=== PATIENT | female | born 2005 | race Caucasian/White ===

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

== ENCOUNTER 2024-02-16 15:30 | Emergency (ER) | payer OTHER, SELFPAY ==
[2024-02-16 15:33] VITALS: BP 130/80; PULSE 73; RESP 16; TEMP 36.4; O2SAT 100
--- NOTE | 2024-02-16 16:00 | ED.GENADULT ---
HPI - General Adult General Chief complaint: Unspecified Stated complaint: abd, back and leg pain Time Seen by Provider: 02/16/24 15:47 History of Present Illness HPI narrative: Pt presents with two different complaints. Pt has had low abdominal pain intermittently for quite awhile after eating. Pt says she has low abdominal pain after eating and then has diarrhea and the pain goes away. Pt has had low back pain for last several days radiating to top of right thigh for three days. Pt says the back pain causes her abdominal pain to start. 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 Pt denies numbness or wekaness pr probs with bladder or bowels. Related Data Home Medications Medication Instructions Recorded Confirmed norethindrone 1.5 mg-ethinyl tablet 07/10/21 07/10/21 estradiol 30 mcg(21)/iron 75 mg(7) tablet (Junel FE 1.5/30 (28)) Allergies Allergy/AdvReac Type Severity Reaction Status Date / Time No Known Allergies Allergy Verified 02/16/24 16:14 Course Vital Signs Vital signs: Vital Signs Temperature 97.6 F 02/16/24 15:33 Pulse Rate 73 02/16/24 15:33 Respiratory Rate 16 02/16/24 15:33 Blood Pressure 130/80 02/16/24 15:33 Pulse Oximetry 100 02/16/24 15:33 Temperature 97.6 F 02/16/24 15:33 Pulse Rate 74 02/16/24 17:06 Respiratory Rate 15 02/16/24 17:06 Blood Pressure 112/57 L 02/16/24 17:06 Pulse Oximetry 100 02/16/24 17:06 Medical Decision Making [facility] Narrative Medical decision making narrative: Pt presents with intermittent abdominal pain which seems more like IBS. will check some labs. Pt also has back pain and top of right leg pain whicn seems like pinched nerve or nerve root or disc bulging issue. will treat for pain. Pt has UTi so will add macrobid to flexeril and prednisone wean. Vital Signs Vital Signs: Vital Signs Temperature 97.6 F 02/16/24 15:33 Pulse Rate 73 02/16/24 15:33 Respiratory Rate 16 02/16/24 15:33 Blood Pressure 130/80 02/16/24 15:33 Pulse Oximetry 100 02/16/24 15:33 Temperature 97.6 F 02/16/24 15:33 Pulse Rate 74 02/16/24 17:06 Respiratory Rate 15 02/16/24 17:06 Blood Pressure 112/57 L 02/16/24 17:06 Pulse Oximetry 100 02/16/24 17:06 Lab Data 02/16/24 16:26 02/16/24 16:26 Labs: Lab Results 02/16/24 02/16/24 Range/Units 16:26 16:46 WBC 10.9 H (4.5-10.0) K/mm3 RBC 4.95 (4.2-5.4) M/mm3 Hgb 14.3 (12.0-15.0) g/dL Hct 41.9 (37.0-47.0) % MCV 84.6 (80-100) fl MCH 28.9 (26-34) pg MCHC 34.1 (32-36) g/dl RDW 13.0 (11.5-14.5) % Plt Count 285 (150-375) k/mm3 MPV 10.1 (7.4-10.4) fl Immature Gran % (Auto) 0.7 H (0-0.5) % Neut % (Auto) 74.7 H (45.5-73.1) % Lymph % (Auto) 14.9 L (18.3-44.2) % [place] % (Auto) 7.1 (2.6-8.5) % Eos % (Auto) 2.2 (0-4.4) % Baso % (Auto) 0.4 (0.2-1.2) % Lymph # (Auto) 1.62 (0.9-3.2) K/mm3 [place] # (Auto) 0.8 H (0.1-0.6) K/mm3 Eos # (Auto) 0.2 (0-0.3) K/mm3 Baso # (Auto) 0.0 (0.0-0.1) K/mm3 Abs Immat Gran (auto) 0.08 H (0.00-0.031) K/mm3 Absolute Neuts (auto) 8.1 H (1.3-6.7) K/mm3 Absolute Nucleated RBC 0.000 (0.0-0.012) K/mm3 Nucleated RBC % 0.0 (0.0-0.2) % Sodium 139 (134-143) mmol/L Potassium 3.5 (3.4-5.0) mmol/L Chloride 102 (98-107) mmol/L Carbon Dioxide 28 (22-30) mmol/L Anion Gap 9 (4-12) mmol/L BUN 6 L (8-21) mg/dL Creatinine 0.70 (0.7-1.0) mg/dL Estim Creat Clear Calc 107 ml/min Estimated GFR > 60 (59 - ) Glucose 99 (65-110) mg/dL Calcium 9.3 (8.9-10.7) mg/dL Total Bilirubin 0.5 (0.2-1.3) mg/dL AST 18 (14-36) U/L ALT 13 (6-35) U/L Alkaline Phosphatase 73 (45-116) U/L Total Protein 8.0 (6.3-8.6) g/dL Albumin 4.7 (3.7-5.6) g/dL Serum HCG, Qual Negative Urine Color Yellow (Yellow) Urine Appearance Cloudy H (Clear) Urine p
[2024-02-16 16:18] VITALS: BP 133/75; PULSE 65; RESP 15; O2SAT 100
[2024-02-16 16:33] LABS: Basophils Percent Auto 0.4 % (0.2-1.2); Eosinophils Absolute Auto 0.2 K/mm3 (0-0.3); Eosinophils Percent Auto 2.2 % (0-4.4); Hematocrit 41.9 % (37.0-47.0); Hemoglobin 14.3 g/dL (12.0-15.0); Immature Granulocyte Absolute 0.08 K/mm3 (0.00-0.031); Immature Granulocyte Percent A 0.7 % (0-0.5); Lymphocytes Absolute Auto 1.62 K/mm3 (0.9-3.2); Lymphocytes Percent Auto 14.9 % (18.3-44.2); Mean Corpuscular HGB Conc 34.1 g/dl (32-36); Mean Corpuscular Hemoglobin 28.9 pg (26-34); Mean Corpuscular Volume 84.6 fl (80-100); Mean Platelet Volume 10.1 fl (7.4-10.4); Monocytes Absolute Auto 0.8 K/mm3 (0.1-0.6); Monocytes Percent Auto 7.1 % (2.6-8.5); Neutrophils Absolute Auto 8.1 K/mm3 (1.3-6.7); Neutrophils Percent Auto 74.7 % (45.5-73.1); Platelet Count Result 285 k/mm3 (150-375); Red Blood Count 4.95 M/mm3 (4.2-5.4); White Blood Count 10.9 K/mm3 (4.5-10.0)
[2024-02-16 16:48] LABS: Alanine Aminotransferase 13 U/L (6-35); Albumin Level 4.7 g/dL (3.7-5.6); Alkaline Phosphatase 73 U/L (45-116); Anion Gap 9 mmol/L (4-12); Aspartate Amino Transferase 18 U/L (14-36); Bilirubin,Total 0.5 mg/dL (0.2-1.3); Blood Urea Nitrogen 6 mg/dL (8-21); Calcium 9.3 mg/dL (8.9-10.7); Carbon Dioxide 28 mmol/L (22-30); Chloride 102 mmol/L (98-107); Estimated CRCL calculation 107 ml/min; Estimated Glomerular Filt Rate > 60; Glucose 99 mg/dL (65-110); Potassium 3.5 mmol/L (3.4-5.0); Sodium 139 mmol/L (134-143)
[2024-02-16 16:58] LABS: Add Urine Microscopic? YES; Appearance Urine Cloudy (Clear); Bacteria Urine None Seen /hpf; Bilirubin Urine Negative (Negative); Blood Urine 2+ (Negative); Color Urine Yellow (Yellow); Glucose Urine UA Negative (Negative); Ketones Urine Negative (Negative); Leukocyte Esterase Ur 1+ LEU/UL (Negative); Nitrate Urine Negative (Negative); Non Pathogenic Casts 0-2; Protein Urine 1+ mg/dL (Negative); RBC Urine 51-100 /hpf (0-2); Specific Grav Ur 1.014 (1.001-1.035); Squamous Epithelial Cell Urine Few /hpf (Few); WBC Urine 21-50 /hpf (0-3); pH Urine 6.5 (5.0-9.0)
[2024-02-16] MEDS: CYCLOBENZAPRINE HCL 10 MG TABLET PO (17:02)
[2024-02-16] MEDS: methylPREDNISolone SOD SUCC 125 MG VIAL IV PUSH (17:03)
[2024-02-16 17:05] LABS: SPREG INTERNAL CONTROL Positive; Serum Qual hCG Negative
[2024-02-16 17:06] VITALS: BP 112/57; PULSE 74; RESP 15; O2SAT 100
[2024-02-16] MEDS: fentaNYL CITRATE INJ (*CRX) 100 MCG/2 ML VIAL 25 MCG IV PUSH (17:06)
[2024-02-16 18:37] VITALS: BP 115/57; PULSE 64; RESP 16; TEMP 36.5; O2SAT 100
== END 2024-02-16 18:40 | disposition home or self-care (01) ==
PROVIDERS: Emergency Provider Emergency Medicine; PCP Internal Medicine
DX: N39.0 Urinary tract infection, site not specified (principal); K58.9 Irritable bowel syndrome, unspecified; M54.50 Low back pain, unspecified; Z79.3 Long term (current) use of hormonal contraceptives
CPT/HCPCS: 36415; 80053; 81001; 84703; 85025; 87086; 96374; 96375; 99284; A9270; J2919; J3010

== ENCOUNTER 2024-09-26 11:24 | Outpatient (CLI) | payer OTHER, SELFPAY ==
--- NOTE | ~2024-09-26 | XR_ITS ---
Clinical Indication: Cough PA and lateral views of the chest: Comparison: None Findings: The lungs are clear, without evidence of focal consolidation or pleural effusion. Cardiome diastinal silhouette is within normal limits. Bones and soft tissues are unremarkable. Impression: Normal chest. Reviewed, dictated and finalized at location . Impression: Normal chest.
--- OUTSIDE RECORDS SUMMARY | 2024-09-26 11:58 | XMS_ITS | Continuity of Care Document ---
Author Organization [facility] Address [address] [place] [address] Care Team Providers Care Sales Agent Business Services Name Role Phone BUTCH NEAL Primary Care Provider Assessment Encounter Date Assessment Date Assessment LastModified by Organization Details LastModified Time 09/26/2024 09/26/2024 Patient is ___weeks . Discussed plan. [email or web address] Not available 09/26/2024 09:54:56 Plan of Treatment Reminders Order Date Submit Date Provider Last Modified By Organization Details Last Modified Time Details Appointments OB ROUTINE 2024 08:45A M Eder VALLES MD Not available Not available Not available U/S OB BASELIN E 2024 08:30A M ULTRASOUND Not available Not available Not available OB ROUTINE 2024 09:30A M CALEB RENAE MD Not available Not available Not available Lab None recorde d. Referral None recorde d. Procedures None recorde d. Surgeries None recorde d. Imaging None recorde d. Medication Orders Zithrom ax Z-Santosh 250 mg tablet 2024 025 KATERYNA [id number], [address], [place], [address], 09/26/2024 10:26:43 codeine 10 mg-guai fenesin 100 mg/5 mL oral liquid 2024 025 [email or web address] [id number], [address], [place], [address], 09/26/2024 10:38:23 Patient TargetsNo targets recorded. Patient InstructionsNo instructions recorded. Reason for Referral None Reported. Results Created Date Observation Date Name Description Value Unit Range Abnormal Flag Note LastModifiedBy Organization Detail LastModifiedTime 08/30/19 25 08/29/2024 US, obste tric, nucha l trans lucen cy No observ ation record ed. [email or web address] [place] [address], [place], [address], 08/29/2024 10:49:40 08/30/19 25 08/29/2024 US, obste tric, nucha l trans lucen cy No observ ation record ed. [email or web address] [place] [address], [place], [address], 08/30/2024 08:42:16 Result Notes None recorded. Problems Name Problem SNOMED Code Status Onset Date Resolution Date Notes Provider Name and Address Organization Details Recorded Time 46976285 Active 2024 Indiana [facility], [facility] 11:04:52 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 atrophy 535918394182 737437 Active 2024 baby low risk Razia Cullen [facility], [facility] 13:58:57 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 atrophy 115098895520 705450 Active 2024 baby low risk Razia Cullen [facility], [facility] 13:58:57 Upper respirator y infection 58180125 Active 2024 Orville Valles MD [address], [place], [address], [facility] 10:27:18 Problem Notes None recorded. Medical Equipment None Reported. Allergies No known drug allergies Medications Name Sig Start Date Stop Date Status Note LastModified by Organization Details LastModified Time cyclobenzap rine 10 mg tablet TAKE 1 TABLET BY MOUTH 3 TIMES A DAY 03/03 completed Not Available Not Available Not Available amoxicillin 500 mg capsule TAKE 1 CAPSULE BY MOUTH THREE TIMES A DAY FOR 10 DAYS 05/21 completed Not Available Not Available Not Available prednisone 10 mg tablet PLEASE SEE ATTACHED FOR DETAILED DIRECTION S 03/03 completed Not Available Not Available Not Available doxycycline hyclate 100 mg capsule TAKE 1 CAPSULE BY MOUTH TWICE A DAY FOR 7 DAYS 05/10 completed Not Available Not Available Not Available fluconazole 150 mg tablet TAKE 1 TABLET (150 MG) BY MOUTH EVERY DAY FOR 1 DOSE DIRECTED 09/26 completed Not Available Not Available Not Available ampicillin 500 mg capsule TAKE 1 CAPSULE BY MOUTH TWICE A DAY DIRECTED FOR 10 DAYS 09/26 completed Not Available Not Available Not Available Zithromax Z-Santosh 250 mg tablet TAKE 2 TABLETS (500 MG) BY ORAL ROUTE ONCE DAILY FOR 1 DAY THEN 1 TABLET (250 MG) BY ORAL ROUTE ONCE DAILY FOR 4 DAYS 2024 active Not Available Not Available Not Avai lable metronidazo le 500 mg tablet TAKE 1 TABLET BY MOUTH TWICE A DAY FOR 7 DAYS 05/10 completed Not Available Not Available Not Available nystatin-tr iamcinolone 100,000 unit/gram-0 .1 % topical ointment APPLY TO AFFECTED AREA TWICE A DAY FOR 7 DAYS 05/10 completed Not Available Not Available Not Available codeine 10 mg-guaifene sin 100 mg/5 mL oral liquid Take 10 mL every 4 hours by oral route. 2024 active Not Available Not Available Not Avai lable amoxicillin 875 mg-potassiu m clavulanate 125 mg tablet TAKE 1 TABLET BY MOUTH EVERY 12 HOURS 05/21 completed Not Available Not Available Not Available azithromyci n 1 gram oral packet TAKE 1 PACKET EVERY DAY BY ORAL ROUTE DIRECTED. 2024 active Not Available Not Available Not Avai lable azithromyci n 500 mg tablet TAKE 2 TABLETS BY MOUTH TODAY 08/29 completed Not Available Not Available Not Available nitrofurant oin monohydrate /macrocryst als 100 mg capsule TAKE 1 CAPSULE BY MOUTH EVERY 12 HOURS DIRECTED FOR 7 DAYS 08/29 completed Not Available Not Available Not Available Blisovi 24 Fe 1 mg-20 mcg (24)/75 mg (4) tablet TAKE 1 TABLET BY MOUTH EVERY DAY 08/29 completed Not Available Not Available Not Available Linzess 72 mcg capsule 05/10 completed Not Available Not Available Not Available Vitals Date Recorded Body height Body mass index (BMI) Body mass index (BMI) Percentile per age and sex Body weight Systolic blood pressure Diastolic blood pressure Provider Name and Address Organization Details Last Updated DateTime 5 157.48 cm 34.8 kg/m2 97 % 19444.5 5 g 125 mm[Hg] 76 mm[Hg] Indiana Martinez [facility] 09:56:38 Social History Question Answer Notes LastModified by Organizat ion Details LastModified Time Tobacco Smoking Status Never Smoker Joy vizcarra, [facility] 05/21/2022 16:49:48 Are You Blind Or Do You Have Difficulty Seeing? No Information n ot available 05/21/2022 What Is Your Level Of Caffeine Consumption? Moderate Information not available 05/21/2022 How Much Tobacco Do You Chew? None Information not available 05/21/2022 In The 14 Days Before Symptom Onset, Have You Had Close Contact With A Laboratory-confirm ed COVID-19 While That Case Was Ill? No Information n ot available 05/21/2022 In The 14 Days Before Symptom Onset, Have You Had Close Contact With A Person Who Is Under Investigation For COVID-19 While That Person Was Ill? No Information not available 05/21/2022 Have You Been To An Area Known To Be High Risk For COVID-19? No Information not available 05/21/2022 Are You Deaf Or Do You Have Serious Difficulty Hearing? No Information not available 05/21/2022 What Type Of Diet Are You Following? REGULAR Information n ot available 05/21/2022 What Is The Highest Grade Or Level Of School You Have Completed Or The Highest Degree You Have Received? [id number] Information not available 05/27/2023 Are There Any Guns Present In Your Home? No Information not available 05/21/2022 Do You Use Protection During Sex? Usually Information not available 05/21/2022 Do You Use Your Seat Belt Or Car Seat Routinely? Yes Information not available 05/21/2022 Do You Have Smoke And Carbon Monoxide Detectors In Your Home? Yes Information not available 05/21/2022 How Much Tobacco Do You Smoke? No Information not available 05/21/2022 Do You Use Sunscreen Routinely? Yes Information not available 05/21/2022 Have You Used IV Drugs? No Information not available 05/21/2022 Do You Have Difficulty Walking Or Climbing Stairs? No Information not available 05/21/2022 Sex: Unknown Functional Status Question Answer Note LastModified by Organizat ion Details LastModified Time Do you use any illicit or recreational drugs? No Information not available 05/21/2022 What is your level of alcohol consumption? None Information not available 05/21/2022 Are you currently employed? Yes Information not available 05/27/2023 Are you able to walk? YESWOREST Information not available 05/21/2022 Are you able to care for yourself? 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 No Information not available 05/21/2022 What is your exercise level? Occasional Information not available 05/21/2022 Mental Status Question Answer Note LastModified by Organization D etails LastModified Time Do you feel stressed (tense, restless, nervous, or anxious, or unable to sleep at night)? [id number] Information not available 05/21/2022 Family History Nothing Reported. Medical History Condition Response Allergies (Food, seasonal, environmental ) N Other N Breast Cancer N Drug/Latex Allergies/Reactions N Blood Transfusion N Dermatologic Disorders N Lung Disease N Defects or Inherited Disease Y Breast Problem N Gestational Diabetes N Hematologic disorders N Anesthesia Complications N History of STI N Deep Vein Thrombosis N Polycystic ovary syndrome N Anxiety Disorder N Autoimmune disease N Arthritis N Infertility N Polyps N Acid Reflux (GERD) N History of abnormal pap N Cancer N Stroke N Varicosities N Neurologic/Epilepsy N Endometriosis N High Cholesterol N Headaches N Fibromyalgia N Kidney Disease N Heart Problems N Kidney or Bladder Problems N Thyroid Problems N GI Problems N Eating Disorder N Anemia N Art (IVF or FET) N Psychiatric Illness N Ovarian Cancer N Diabetes N Pulmonary (TB, Asthma) N Hepatitis/Liver Disease N No Past Medical History N Eczema N Urinary Tract Infection N Abuse/Domestic Violence N Asthma N Trauma/Violence N Depression/ depression N Heart Disease N Pre-Eclampsia N Hypertension N Osteoporosis N Thrombophilias N Gynecological History Statement/Question Response Date of Last Mammogram Flow Moderate Date of LMP 05/30/2024 N Was last menstrual period normal Y STIs/STDs N Date of control 07/17/2016 Date of Last Colonoscopy N/A Desired Control Method On BCP's at Conception? N HPV Vaccine Y Duration of Flow (days) 7 Current Control Method Are cycles usually normal Y Sexually Active? Y Menses Monthly Y Date of DEXA bone scan Age of first menstrual cycle 11 Date of Last Pap Smear Sexual Problems? N LMP Definite N Obstetrics History GPAL:G 1 P 0 0 0 0 Past Encounters Encounter ID Performer Location Encounter Start Date Encounter Closed Date Diagnosis/Indication Diagnosis SNOMED-CT Code Diagnosis ICD10 Code Diagnosis Note [id number] Orville Valles MD [place] [address],[facility] [place] [address] 08/29/2024 09:35:21 08/29/2024 10:41:31 screening 572878156 Z36.82 Z3A.12 [id number] Orville Valles MD [place] [address],[facility] [place] [address] 08/29/2024 09:36:20 08/29/2024 11:36:00 Second trimester 84911152 Z34.02 [id number] Orville Valles MD [place] [address],[place] [address] 09/26/2024 09:44:02 09/26/2024 10:52:23 Acute upper respiratory infection 60331656 J06.9 Health Concerns Section Related Observation LastModified by Organization Yfn alanis LastModified Time None Recorded Concern Status LastModified by Organization Details LastModified Time None Recorded Payers Encounter Date Sequence Insurance Name Policy Number Policy Araiza Covered Member ID Araiza Member ID Guarantor Name 09/26/2024 1 [facility] [id number] [place] [id number] Amisha Dukes [facility]BG[facility] Episode Ob Episode Information Episode Created Date Number of Fetuses Patient Bloodtype Patient rh Status Prepregnancy Weight lbs Domestic Partner Domestic Partner Phone Father Name Saloonkeeper Status 08/30/19 25 1 A Positive 187 Hardeep OPEN Fetus Data First Name Last Name Admitted to NICU Weight (g) Sex Living Outcome Pediatric Complications Fetus ID Race Codes Race Delivery Type [id number] Problems Problem Notes Problem Name Start Date End Date Resolution Snomed Code Not e 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 atrophy 08/29/2024 [id number] baby low risk Upper respiratory infection 09/26/2024 [id number] Randall Calculation Initial Randall Date Initial Exam Date Initial Exam Provider Initial Ultrasound Date Last Menstrual Period Date Ultra Sound Weeks Gestation 08/29/2024 07/25/2024 05/30/2024 7 Eighteen To Twenty Week Randall Update Ultra Sound Date Fundal Height At Umbil Quickening Date Ultra Sound Latest Weeks Gestation Final Randall Confirmed By Final Randall Confirmed Date Final Randall Date Ultra Sound Latest Days Gestation 0 [email or web address] 08/29/2024 03/13/20 25 0 Pre-abdias Flowsheet Flowsheet Date 08/29/2024 Shaw Score Blood Edema Fundus Height Fundus Units Glucose Ketones Leukocytes Nitrite Labor Signs Protein Cervic Dilation Cervic Effacement Cervic Station Type Weight in lbs Pre/Post Dialysis Refused Weight 193.490431775125 BP Diastolic BP Location Tested BP Systolic BP Type 76 L arm 129 sitting Fetus Heart Rate Present Fetus Movement Comments this patient is a 19-year-ol d PRiMiparous female at 12 weeks' gestation who presents for initial care. Her medical, surgical, obstetric history is unremarkable. She is vaccinated. She was given precautions recommendations for . We talked about vaccines in . Talked about care in detail. She is having genetic testing. She had a normal 12 week ultrasound. To begin routine care. Flowsheet Date 09/26/2024 Shaw Score Blood Edema Fundus Height Fundus Units Glucose Ketones Leukocytes Nitrite Labor Signs Protein Cervic Dilation Cervic Effacement Cervic Station Type Weight in lbs Pre/Post Dialysis Refused Weight 190.144683646759 BP Diastolic BP Location Tested BP Systolic BP Type 76 L arm 125 sitting Fetus Heart Rate Present A 154 Present Fetus Movement A No Comments patient has heavy cough and congestion. Repetitive cough in the office during her short visit. She was prescribed narcotic cough medicine and antibiotics. She was given precautions to call for worsening symptoms. Menstrual History Last Menstrual Date Menses Monthly On Bcp Conception Prior Menses Frequency Hcg Plus Date Menarche Onset Age 0205/30/2024 true Delivery Information Delivery Date Delivery Type Labor Anesthesia Weeks Gestation Incision Type Labor Labor Length Hrs Delivered By Post Complications Tubal Sterilization Discharge Date Comments Discharge Information Feeding Method Contraceptive Method Maternal HG B and HCT Levels
--- OUTSIDE RECORDS SUMMARY | 2024-09-26 11:58 | XMS_ITS | Data Portability ---
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 Discussed plan. [email or web address] Not available 09/26/2024 09:54:56 Plan of Treatment Reminders Order Date Submit Date Provider Last Modified By Organization Details Last Modified Time Details Appointments OB ROUTINE 2024 08:45A M Eder WILLIAMSON MD Not available Not available Not available U/S OB BASELIN E 2024 08:30A M ULTRASOUND Not available Not available Not available OB ROUTINE 2024 09:30A M CALEB RENAE MD Not available Not available Not available Lab drug screen, urine 2024 025 [email or web address] [place], [address], [address], [place], [address], 08/29/2024 12:33:44 culture , urine 2024 025 [facility] (Lab), [address], [place], [address], 08/31/2024 00:41:40 urinaly sis, dipstic k 2024 025 [email or web address] [place], [address], [place], [address], 08/11/2024 11:02:05 Referral None recorde d. Procedures None recorde d. Surgeries None recorde d. Imaging US, obstetr ic, nuchal translu cency 2024 025 [email or web address] [place], [address], [place], [address], 08/29/2024 15:43:55 US, obstetr ic, transva ginal 2024 025 [email or web address] [place], [address], [place], [address], 07/26/2024 15:18:19 Medication Orders Zithrom ax Z-Santosh 250 mg tablet 2024 025 [id number], [address], [place], [address], 09/26/2024 10:26:43 codeine 10 mg-guai fenesin 100 mg/5 mL oral liquid 2024 025 [email or web address] [id number], [address], [place], [address], 09/26/2024 10:38:23 Macrobi d 100 mg capsule 2024 025 [id number], [address], [place], [address], 08/29/2024 11:04:17 Patient TargetsNo targets recorded. Patient InstructionsNo instructions recorded. Reason for Referral None Reported. Results Created Date Observation Date Name Description Value Unit Range Abnormal Flag Note LastModifiedBy Organization Detail LastModifiedTime 08/25/19 25 08/24/2024 [UNIT Y] ANEUP LOIDY NIPT redraw requested? 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 n NO CALL abnormal Not Available [facility] [address] [facility], [place], [address], 08/24/2024 02:27:47 08/25/19 25 08/24/2024 [UNIT Y] ANEUP LOIDY NIPT sex chromosome aneuploidy NO CALL abnormal Not Available [facility] [address] [facility], [place], [address], 08/24/2024 02:27:47 08/25/19 25 08/24/2024 [UNIT Y] ANEUP LOIDY NIPT monosomy X NO CALL abnormal Not Available [facility] [address] [facility], [place], [address], 08/24/2024 02:27:47 08/25/19 25 08/24/2024 [UNIT Y] ANEUP LOIDY NIPT trisomy 13 NO CALL abnormal Not Available [facility] [address] [facility], [place], [address], 08/24/2024 02:27:47 08/25/19 25 08/24/2024 [UNIT Y] ANEUP LOIDY NIPT trisomy 18 NO CALL abnormal Not Available [facility] [address] [facility], [place], [address], 08/24/2024 02:27:47 08/25/19 25 08/24/2024 [UNIT Y] ANEUP LOIDY NIPT trisomy 21 NO CALL abnormal Not Available [facility] [address] [facility], [place], [address], 08/24/2024 02:27:47 08/25/19 25 08/24/2024 [UNIT Y] ANEUP LOIDY NIPT sex FEMALE normal Not Available [facility] [address] [facility], [place], [address], 08/24/2024 02:27:47 08/25/19 25 08/24/2024 [UNIT Y] ANEUP LOIDY NIPT gestation SINGLE TON normal Not Available [facility] [address] [facility], [place], [address], 08/24/2024 02:27:47 08/25/19 25 08/24/2024 [UNIT Y] ANEUP LOIDY NIPT for detailed report, see pdf See PDF normal Not Available [facility] [address] [facility], [place], [address], 08/24/2024 02:27:47 08/27/19 25 08/26/2024 [UNIT Y] DEBBY ER SCREE N fraction 4.5% normal Not Available [facility] [address] [facility], [place], [address], 08/26/2024 23:55:45 08/27/19 25 08/26/2024 [UNIT Y] DEBBY ER SCREE N spinal muscular atrophy nipt result LOW RISK 1 in 4000 normal Not Available [facility] [address] [facility], [place], [address], 08/26/2024 23:55:45 08/27/19 25 08/26/2024 [UNIT Y] DEBBY ER SCREE N sickle cell disease/beta -thalassemia /hemoglobino pathies carrier screen NEGATI VE normal Not Available [facility] [address] [facility], [place], [address], 08/26/2024 23:55:45 08/27/19 25 08/26/2024 [UNIT Y] DEBBY ER SCREE N alpha-thalas semia carrier screen NEGATI VE normal Not Available [facility] [address] [facility], [place], [address], 08/26/2024 23:55:45 08/27/19 25 08/26/2024 [UNIT Y] DEBBY Herrera cystic fibrosis carrier screen NEGATI VE normal Not Available [facility] [address] [facility], [place], [address], 08/26/2024 23:55:45 08/27/19 25 08/26/2024 [UNIT Y] DEBBY Herrera spinal muscular atrophy carrier screen POSITI VE 1 SMN1 copy abnormal Not Available [facility] [address] [facility], [place], [address], 08/26/2024 23:55:45 08/27/19 25 08/26/2024 [UNIT Y] DEBBY Herrera for detailed report, see pdf See PDF normal Not Available [facility] [address] [facility], [place], [address], 08/26/2024 23:55:45 07/26/19 25 07/25/2024 CT/GC AND TRICH OMONA S VAGIN TRACY (RRNA ), URINE chlamydia trachomatis, PCR Positi ve negati ve abnormal Posit cristofer: Prese nce of C. trach omati s (by WILLIE) Chlam ydia trach omati s RNA detec amy by PCR. Not Available [facility] (Lab) [address], [place], [address], 07/26/2024 14:30:05 07/26/19 25 07/25/2024 CT/GC AND TRICH OMONA S VAGIN TRACY (RRNA ), URINE neisseria gonorrhoeae, PCR Negati ve negati ve Not Available [facility] (Lab) [address] [place], [address], 07/26/2024 14:30:05 07/26/19 25 07/25/2024 CT/GC AND TRICH OMONA S VAGIN TRACY (RRNA ), URINE trichomonas vaginalis ribosomal RNA (rrna) Negati ve negati ve Not Available [facility] (Lab) [address] [facility], [place], [address], 07/26/2024 14:30:05 08/12/19 25 08/11/2024 urina lysis , dipst ick Leukocytes +++ Not Available [facility] [address], [place], [address], 08/11/2024 10:58:35 08/12/19 25 08/11/2024 urina lysis , dipst ick Nitrite + Not Available [place] [address], [place], [address], 08/11/2024 10:58:35 08/12/19 25 08/11/2024 urina lysis , dipst ick Urobilinogen - Not Available [facility] [address], [place], [address], 08/11/2024 10:58:35 08/12/19 25 08/11/2024 urina lysis , dipst ick Protein + Not Available [place] [address], [place], [address], 08/11/2024 10:58:35 08/12/19 25 08/11/2024 urina lysis , dipst ick pH 7 Not Available [place] [address], [place], [address], 08/11/2024 10:58:35 08/12/19 25 08/11/2024 urina lysis , dipst ick Blood trace Not Available [place] [address], [place], [address], 08/11/2024 10:58:35 08/12/19 25 08/11/2024 urina lysis , dipst ick Specific [place] 1.020 Not Available [facility] [address], [place], [address], 08/11/2024 10:58:35 08/12/19 25 08/11/2024 urina lysis , dipst ick Ketone - Not Available [place] [address], [place], [address], 08/11/2024 10:58:35 08/12/19 25 08/11/2024 urina lysis , dipst ick Bilirubin - Not Available Torri dejesus [address], [place], [address], 08/11/2024 10:58:35 08/12/19 25 08/11/2024 urina lysis , dipst ick Glucose normal Not Available [place] [address], [place], [address], 08/11/2024 10:58:35 08/12/19 25 08/11/2024 urina lysis , dipst ick Appearance cloudy Not Available [facility] [address], [place], [address], 08/11/2024 10:58:35 08/12/19 25 08/11/2024 urina lysis , dipst ick Color yellow Not Available [place] [address], [place], [address], 08/11/2024 10:58:35 08/16/19 25 08/15/2024 CBC W/DIF F WBC 10.6 10'3/ uL 3.5-10 .5 high Not Available [facility] (Lab) [address] , [place], [address], 08/16/2024 10:44:05 08/16/19 25 08/15/2024 CBC W/DIF F RBC 4.90 10'6/ uL (based on docume nted legal sex) 3.80-5 .20 Not Available [facility] (Lab) [address], [place], [address], 08/16/2024 10:44:05 08/16/19 25 08/15/2024 CBC W/DIF F HGB 13.3 g/dL (based on docume nted legal sex) 11.6-1 5.4 Not Available [facility] (Lab) [address], [place], [address], 08/16/2024 10:44:05 08/16/19 25 08/15/2024 CBC W/DIF F HCT 39.8 % (based on docume nted legal sex) 34.0-4 5.0 Not Available [facility] (Lab) [address], [place], [address], 08/16/2024 10:44:05 08/16/19 25 08/15/2024 CBC W/DIF F MCV 81.2 fL 80.0-9 9.0 Not Available [facility] (Lab) [address], [place], [address], 08/16/2024 10:44:05 08/16/19 25 08/15/2024 CBC W/DIF F MCH 27.1 pg 27.0-3 4.0 Not Available [facility] (Lab) [address], [place], [address], 08/16/2024 10:44:05 08/16/19 25 08/15/2024 CBC W/DIF F MCHC 33.4 g/dL 32.0-3 5.5 Not Available [facility] (Lab) [address], [place], [address], 08/16/2024 10:44:05 08/16/19 25 08/15/2024 CBC W/DIF F RDW 14.3 % 11.0-1 5.0 Not Available [facility] (Lab) [address] [place], [address], 08/16/2024 10:44:05 08/16/19 25 08/15/2024 CBC W/DIF F plt 252 10'3/ uL 150-40 0 Not Available [facility] (Lab) [address] [place], [address], 08/16/2024 10:44:05 08/16/19 25 08/15/2024 CBC W/DIF F MPV 11.0 fL 8.8-12 .1 Not Available [facility] (Lab) [address] [facility], [place], [address], 08/16/2024 10:44:05 08/16/19 25 08/15/2024 CBC W/DIF F neutrophils 70.5 % 34.0-7 3.0 Not Available [facility] (Lab) [address] [facility], [place], [address], 08/16/2024 10:44:05 08/16/19 25 08/15/2024 CBC W/DIF F lymphocytes 18.4 % 15.0-5 0.0 Not Available [facility] (Lab) [address], [place], [address], 08/16/2024 10:44:05 08/16/19 25 08/15/2024 CBC W/DIF F monocytes 6.4 % 1.0-15 .0 Not Available [facility] (Lab) [address], [place], [address], 08/16/2024 10:44:05 08/16/19 25 08/15/2024 CBC W/DIF F eosinophils 2.7 % 0.0-8. 0 Not Available [facility] (Lab) [address], [place], [address], 08/16/2024 10:44:05 08/16/19 25 08/15/2024 CBC W/DIF F basophils 0.6 % 0.0-2. 0 Not Available [facility] (Lab) [address] [place], [address], 08/16/2024 10:44:05 08/16/19 25 08/15/2024 CBC W/DIF F immature granulocytes 1.4 % no define d refere nce range Immat ure Granu locyt es (IG) repre sents autom ated enume ratio n of Metam yeloc ytes, Myelo cytes and Promy elocy jermaine when IG is < 5%. Blast s are not inclu ded in IG and repor amy separ ately if prese nt. Not Available [facility] (Lab) [address], [place], [address], 08/16/2024 10:44:05 08/16/19 25 08/15/2024 CBC W/DIF F absolute neutrophils 7.5 10'3/ uL 1.5-8. 0 Not Available [facility] (Lab) [address], [place], [address], 08/16/2024 10:44:05 08/16/19 25 08/15/2024 CBC W/DIF F absolute lymphocytes 2.0 10'3/ uL 1.0-4. 0 Not Available [facility] (Lab) [address], [place], [address], 08/16/2024 10:44:05 08/16/19 25 08/15/2024 CBC W/DIF F absolute monocytes 0.7 10'3/ uL 0.2-1. 0 Not Available [facility] (Lab) [address], [place], [address], 08/16/2024 10:44:05 08/16/19 25 08/15/2024 CBC W/DIF F absolute eosinophils 0.3 10'3/ uL 0.0-0. 6 Not Available [facility] (Lab) [address] [place], [address], 08/16/2024 10:44:05 08/16/19 25 08/15/2024 CBC W/DIF F absolute basophils 0.1 10'3/ uL 0.0-0. 3 Not Available [facility] (Lab) [address] [place], [address], 08/16/2024 10:44:05 08/16/19 25 08/15/2024 CBC W/DIF F absolute immature granulocytes 0.2 10'3/ uL 0.00-0 .10 high Refer ence range s for nonbi nary/ inter sex or unspe cifie d gende r patie nts have not been estab lishe d. Emmanuel e refer to the romelia wing table for range s estab lishe d for cisge nder patie nts and evalu ate in the clini tyrell nabeel xt of the indiv idual patie nt: https ://la bhand book. nm.or g/gen derx Not Available [facility] (Lab) [address], [place], [address], 08/16/2024 10:44:05 08/16/19 25 08/15/2024 HEPAT ITIS C ANTIB CLAUDE SCREE N, REFLE X TO CONFI RMATI ON hepatitis C antibody Non-re active non-re active Antib odies to HCV Not Detec amy, does not exclu de the possi bilit y of expos ure to HCV. Not Available [facility] (Lab) [address], [place], [address], 08/16/2024 10:44:05 08/16/19 25 08/15/2024 HEPAT ITIS B SURFA CE ANTIG EN hepatitis B surface antigen Non-re active non-re active This assay was perfo rmed using [employer] ratio n reage nts and test kits. Value s obtai tanvi with other assay metho ds or kits canno t be used inter newell eably . Not Available [facility] (Lab) [address] , [place], [address], 08/16/2024 10:44:06 08/16/19 25 08/15/2024 HIV 1/2 ANTIG EN/AN TIBOD Y, REFLE X CONFI RMATI ON HIV antigen/anti body Nonrea ctive nonrea ctive HIV-1 antig en and HIV-1 /HIV- 2 antib odies were not detec amy. No labor atory evide nce of HIV infec tion. Not Available [facility] (Lab) [address] [place], [address], 08/16/2024 10:44:06 08/16/19 25 08/15/2024 RUBEL LA IGG ANTIB CLAUDE, QUANT rubella antibodies, IgG Reacti ve reacti ve Not Available [facility] (Lab) [address], [place], [address], 08/16/2024 10:44:07 08/16/19 25 08/15/2024 RUBEL LA IGG ANTIB CLAUDE, QUANT rubella antibodies, IgG quant 76.1 IU/mL >=10 Non-r eacti ve (Non- Immun e) <10 IU/mL React cristofer (Immu ne) > or = 10 IU/mL Not Available [facility] (Lab) [address], [place], [address], 08/16/2024 10:44:07 08/16/19 25 08/15/2024 TYPE/ RH/SC REEN ABO/Rh type A POS Not Available [facility] (Lab) [address], [place], [address], 08/16/2024 10:44:07 08/16/19 25 08/15/2024 TYPE/ RH/SC REEN antibody screen NEG Not Available [facility] (Lab) [address], [place], [address], 08/16/2024 10:44:07 08/16/19 25 08/15/2024 TYPE/ RH/SC REEN exp date 2024 23:59 Not Available [facility] (Lab) [address], [place], [address], 08/16/2024 10:44:07 08/16/19 25 08/15/2024 HEMOG LOBIN A1C hemoglobin A1C 5.1 % 4.0-5. 6 The Ameri can Diabe jermaine Assoc iatio n recom mends that a prima ry goal of lindsay russell be a HBA1C of < 7% and that physi ciamarcial russell reeva luate the treat ment regim en in patie nts with HBA1C value s consi stent ly > 8%. <5.7% Alejandra l 5.7 - 6.4% Incre ased risk for diabe jermaine >=6.5 % Diagn ostic of diabe jermaine <7.0% Goal of thera py >8.0% Actio n sugge sted Not Available [facility] (Lab) [address], [place], [address], 08/16/2024 10:44:08 08/16/19 25 08/15/2024 RPR SCREE N, REFLE X TITER /CONF IRMAT ION RPR qualitative Nonrea ctive nonrea ctive Not Available [facility] (Lab) [address], [place], [address], 08/16/2024 10:44:08 08/30/19 25 08/29/2024 CULTU RE: URINE result report SEE RESULT S BELOW abnormal Test: Cultu re: Urine Speci men Sourc e: Urine - Clean Catch Speci men Type: Urine Speci men Date: 1338 Resul t Date: 2338 Resul t Statu s: Final resul t Abnor mal: Yes Dianna moreno Lab: [facility] [address] [facility] [address] Tel: CULTU RE ----- ----- ----- --- >100, 000 CFU/m l Strep tococ cus agala ctiae (Grou p B) (Abno rmal) Strep tococ cus agala ctiae (Beta strep Group B Strep ) remai ns unive rsall y susce ptibl e to penic illin , cefaz venu and vanco mycin . If clind amyci n is being consi dered for intra partu m proph ylaxi s, pleas e conta ct the lab withi n 5 days. Not Available [facility] (Lab) [address], [place], [address], 08/31/2024 00:41:40 08/30/1908/2908/29/2024 drug scree n, urine Amphetamines : negati ve Not Available [place] [address], [place], [address], 08/29/2024 12:33:10 08/30/19 25 08/29/2024 drug scree n, urine Cannabinoids : negati ve Not Available [place] [address], [place], [address], 08/29/2024 12:33:10 08/30/19 25 08/29/2024 drug scree n, urine Cocaine: negati ve Not Available [place] [address], [place], [address], 08/29/2024 12:33:10 08/30/19 25 08/29/2024 drug scree n, urine Opiates: negati ve Not Available [place] [address], [place], [address], 08/29/2024 12:33:10 08/30/19 25 08/29/2024 drug scree n, urine Phenocyclidi ne: negati ve Not Available [place] [address], [place], [address], 08/29/2024 12:33:10 08/30/19 25 08/29/2024 drug scree n, urine Barbiturates : negati ve Not Available [place] [address], [place], [address], 08/29/2024 12:33:10 08/30/19 25 08/29/2024 drug scree n, urine Benzodiazepi amrit: negati ve Not Available [place] [address], [place], [address], 08/29/2024 12:33:10 08/30/19 25 08/29/2024 drug scree n, urine Ethanol: negati ve Not Available [place] [address], [place], [address], 08/29/2024 12:33:10 08/30/19 25 08/29/2024 drug scree n, urine Hallucinogen s: negati ve Not Available [place] [address], [place], [address], 08/29/2024 12:33:10 08/30/19 25 08/29/2024 drug scree n, urine Inhalants: negati ve Not Available [place] [address], [place], [address], 08/29/2024 12:33:10 08/30/19 25 08/29/2024 drug scree n, urine Anabolic Steroids: negati ve Not Available [place] [address], [place], [address], 08/29/2024 12:33:10 07/26/19 25 07/25/2024 US, obste tric, trans vagin al No observ ation record ed. [email or web address] [place] [address], [place], [address], 07/25/2024 15:58:12 07/26/19 25 07/25/2024 US, obste tric, trans vagin al No observ ation record ed. [email or web address] [address], [place], [address], 07/25/2024 21:19:05 08/30/19 25 08/29/2024 US, obste tric, nucha l trans lucen cy No observ ation record ed. [email or web address] [place] [address], [place], [address], 08/29/2024 10:49:40 08/30/19 25 08/29/2024 US, obste tric, nucha l trans lucen cy No observ ation record ed. [email or web address] [address], [place], [address], 08/30/2024 08:42:16 Result Notes None recorded. Problems Name Problem SNOMED Code Status Onset Date Resolution Date Notes Provider Name and Address Organization Details Recorded Time 13535022 Active 2024 Indiana Juan null, [facility] 5 11:04:52 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 atrophy 725965320390 433442 Active 2024 baby low risk Razia Cullen null, [facility] 13:58:57 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 atrophy 814214018559 122367 Active 2024 baby low risk Razia Cullen null, [facility] 5 13:58:57 Upper respirator y infection 51463605 Active 2024 Orville Williamson MD [address], [place], [address], [facility] 10:27:18 Problem Notes None recorded. Medical [...] Recorded Body height Body mass index (BMI) Percentile per age and sex Body mass index (BMI) Body weight Systolic blood pressure Diastolic blood pressure Provider Name and Address Organization Details Last Updated DateTime 5 157.48 cm 96 % 34.2 kg/m2 52859.7 7 g 141 mm[Hg] 77 mm[Hg] EVAN Power [facility] 5 12:44:20 Date Recorded Body height Body mass index (BMI) Percentile per age and sex Body mass index (BMI) Body weight Systolic blood pressure Diastolic blood pressure Provider Name and Address Organization Details Last Updated DateTime 5 157.48 cm 97 % 35.3 kg/m2 61634.3 3 g 129 mm[Hg] 76 mm[Hg] Indiana Martinez [facility] 5 11:04:00 Date Recorded Body height Body mass index (BMI) Body mass index (BMI) Percentile per age and sex Body weight Systolic blood pressure Diastolic blood pressure Provider Name and Address Organization Details Last Updated DateTime 5 157.48 cm 34.8 kg/m2 97 % 81848.5 5 g 125 mm[Hg] 76 mm[Hg] Indiana Martinez [facility] 5 09:56:38 Social History Question Answer Notes LastModified by Organizat ion Details LastModified Time Tobacco Smoking Status Never Smoker Joy vizcarra, [facility] 05/21/2022 16:49:48 Are You Blind Or [...] Or The Highest Degree You Have Received? 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 No Information not available 05/21/2022 What is your exercise level? Occasional Information not available 05/21/2022 Mental Status Question Answer Note LastModified by Organization D etails LastModified Time Do you feel stressed (tense, restless, nervous, or anxious, or unable to sleep at night)? [id number] Information not available 05/21/2022 Family History Nothing [...] SNOMED-CT Code Diagnosis ICD10 Code Diagnosis Note [id number] THAIS Headley [place] [address] [address] 05/21/2022 16:39:16 05/21/2022 18:39:22 Gynecologic examination [id number] Z01.419 Take Calcium with Vitamin D 1200mg daily if not receiving in daily diet. It is strongly advised to have an annual flu shot and up can obtain at most pharmacies . If you have not had a TDap shot in the last 10 years you should obtain one as well. Discussed with patient & provided with informatio n regarding Gardisil vaccine to prevent the 4 strains for HPV that cause cervical cancer. Encourage safe sexual practices, to use condoms and limit partners if not already in a monogamous relationsh ip. Do monthly self breast exams. BRCA testing is now available for patients with strong genetic history of female cancer. If interested contact the office. Engage in daily exercise of low impact aerobic exercise 45-60 minutes 4-5 times weekly. Avoid tobacco, illicit drugs, and alcohol. This lifestyle behavior pattern will lead to less health conditions and longer life span. If BMI greater than 25 weight watchers or dietary consult advised. Pap smear is not recommende d prior to the age of 21. If you have any concerns, pelvic, or vaginal problems we can discuss testing. Patient received above instructio ns, and questions have been answered. If you have any questions please call or respond to this email. Patient was made aware of the patient portal and may obtain a paper copy of today's plan if desired.WW EBC - OCP. Unsure which one she is on. Periods are light but cramping still persist with current pillDenies hx of DVT/PE, HTN, Stroke/SD, cancer, liver disease, or migraine with auraWe discussed all BC methods, she will consider and let us know if she would like to trial a different pill or different method. Discussed R/B/A of all methods.ST I testing declinedPa p due at age 20UTD with PCP Contracept ion care management [id number] Z30.9 [id number] THAIS Headley [place] [address],[facility] [place] [address] 05/27/2023 16:21:46 05/27/2023 16:50:20 Contraception care management [id number] Z30.9 Discussed all control options in great detail. Pt would like to start ocp. She is aware of the risks and benefits. She does not have any medical condition that is contraindi cated with the use of estrogen containing control. Pt will start her pills on the first day following the start of her period. She is aware it is not effective for control the first month. She is also aware of the importance of taking at the same time every day. Encouraged use of condoms as the pill does not protect against STD's. Will return in 3-4 months for med check. Consent was read and signed. Pt verbalized understand ing. Time spent in visit is a total of 15 mins with at least 50% of visit consisting of counseling and review of plan of care. [id number] Orville Williamson MD [place] [address],[place] [address] 03/03/2024 15:23:03 03/03/2024 16:24:19 Urinary symptoms [id number] R39.9 Patient presents with symptoms of UTI. Results of dipstick were suggestive of UTI.Advise d to drink clear fluids, Tylenol for pain and take prescribed medication s as instructed .Patient encouraged to follow up within 1 week if not improving. [facility] [id number] Z30.9 Pt doing well on BCPs. Risks/bene fits reviewed.R efills x 1 year sent. Vulval irritation [id number] 003 N90.89 Vaginitis panel sent to evaluate for yeast/BV/t rich.Rx for topical Nystatin-t riamcinolo ne sent. Pt to apply ointment to vulva twice daily for 7 days.STI testing added per pt request. [id number] Orville Williamson MD [place] [address],[place] [address] 2024 14:18:23 2024 14:55:42 Venereal disease screening [id number] Z11.3 Collected vaginal specimen for CT test of cure.Recom mended consistent condom use to prevent future occurrence of STIs. [id number] Orville Williamson MD [place] [address],[place] [address] 07/25/2024 11:45:52 07/25/2024 12:43:56 Uterine size for dates discrepancy [id number] O26.841 Z3A.01 [id number] CALEB RENAE MD [place] [address],[place] [address] 07/25/2024 11:47:10 07/25/2024 13:39:07 screening [id number] Z36.89 Genetic in vestigation procedure [id number] Z31.430 test positive [id number] Z32.01 1. Exam today within normal limits.2. Ultrasound today confirms GA and viability. EDC . GC/Sivakumar a testing done: will f/u as indicated. 4. ACOG guidelines and plan of care for reviewed with patient. All questions answered.5 . Return to office at 12 weeks for new OB visit6. Will need new OB labs at next visit.7. Genetic screening: desires at 10 weeks, orders given. [id number] Orville Williamson MD [place] [address],[place] [address] 08/11/2024 09:46:51 08/12/2024 07:11:55 Urinary system finding [id number] R39.9 [id number] Orville Williamson MD [place] [address],[place] [address] 08/29/2024 09:35:21 08/29/2024 10:41:31 screening 224279413 Z36.82 Z3A.12 [id number] Orville Williamson MD [place] [address],[place] [address] 08/29/2024 09:36:20 08/29/2024 11:36:00 Second trimester 59534830 Z34.02 [id number] Orville Williamson MD [place] [address],[place] [address] 09/26/2024 09:44:02 09/26/2024 10:52:23 Acute upper respiratory infection 15636901 J06.9 Health Concerns Section Related Observation LastModified by Organization Detai ls LastModified Time None Recorded Concern Status LastModified by Organization Details LastModified Time None Recorded Advance Directives Directive None Recorded Payers Encounter Date Sequence Insurance Name Policy Number Policy Araiza Covered Member ID Araiza Member ID Guarantor Name 07/25/2024 [facility] [place] [id number] 07/25/2024 1 [facility] [id number] [place] [id number] [facility] 08/11/2024 1 [facility] [id number] [place] [id number] [facility] 08/29/2024 1 [facility] [id number] [place] [id number] [facility] 08/29/2024 1 [facility] [id number] [place] [id number] [facility] 09/26/2024 1 [facility] [id number] [place] [id number] [facility] Notes Date Note Type Note Provider Name and Address Organization Details Recorded Time 07/25/2024 text/html Presents to the office today to confirm . Patient denies any problems up to this point with her . Patient denies cramping or vaginal bleeding. Mild nausea. Hx of IBS-C. On Miralax, no worsening. Patient is in a relationship with Hardeep. Lives with mom and dad, two dogs and one cat. Discussed litter box hygiene. 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 Denies tobacco/EtOH/illic its. CALEB RENAE MD [address], [place], [address], [facility] 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 Status 08/30/19 25 1 A Positive 187 Hardeep OPEN Fetus Data First Name Last Name Admitted to NICU Weight (g) Sex Living Outcome Pediatric Complications Fetus ID Race Codes Race Delivery Type [id number] Problems Problem Notes Problem Name Start Date End Date Resolution Snomed Code Not e 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 atrophy 08/29/2024 [id number] baby low risk Upper respiratory infection 09/26/2024 [id number] Randall Calculation Initial Randall Date Initial Exam [...] Gestation 0 [email or web address] 08/29/2024 03/13/20 25 0 Pre- Flowsheet Flowsheet Date 08/29/2024 Shaw Score Blood Edema Fundus Height Fundus Units Glucose Ketones Leukocytes Nitrite Labor Signs Protein Cervic Dilation Cervic Effacement Cervic Station Type Weight in lbs Pre/Post Dialysis Refused Weight 193.134290460268 BP Diastolic BP Location Tested BP Systolic [...] Weight in lbs Pre/Post Dialysis Refused Weight 190.940765964162 BP Diastolic BP Location Tested BP Systolic [...]
== END 2024-09-26 11:25 | disposition home or self-care (01) ==
PROVIDERS: PCP Internal Medicine; Visit Provider Obstetrics & Gynecology
DX: R05.3 Chronic cough (principal)
CPT/HCPCS: 71046

== ENCOUNTER 2024-12-13 12:41 | Outpatient (RCR) | payer OTHER, MEDICAID, SELFPAY ==
[2024-12-01 13:10] VITALS: BP 123/57; PULSE 101
[2024-12-13 14:35] VITALS: BP 114/61; PULSE 93
== END 2025-03-01 23:59 | disposition home or self-care (01) ==
LOC: ANHOBOP 12:41
PROVIDERS: PCP Internal Medicine; Visit Provider Obstetrics & Gynecology
DX: O36.8120 Decreased fetal movements, second trimester, not applicable or unspecified (principal); Z3A.25 25 weeks gestation of pregnancy
CPT/HCPCS: 59025

== ENCOUNTER 2025-02-13 12:49 | Outpatient (CLI) | payer OTHER, SELFPAY ==
[2025-02-13 14:21] LABS: HIV 1/2 Ab P24 Ag Result Negative (Negative)
== END 2025-02-13 12:50 | disposition home or self-care (01) ==
LOC: ANHOBOP 12:50
PROVIDERS: PCP Internal Medicine; Visit Provider Obstetrics & Gynecology
DX: Z11.3 Encounter for screening for infections with a predominantly sexual mode of transmission (principal)
CPT/HCPCS: 36415; 86703; G0432

== ENCOUNTER 2025-03-07 00:10 | Inpatient (IN) | payer OTHER, MEDICAID, SELFPAY ==
[2025-03-07] VITALS (190 sets, daily range): BP systolic 105–169; BP diastolic 47–122; PULSE 66–165; TEMP 36.6–37.2; O2SAT 96–100; BMI 59.5
[2025-03-07 00:46] LABS: Hematocrit 35.7 % (37.0-47.0); Hemoglobin 11.4 g/dL (12.0-15.0); Immature Granulocyte Percent A 3.2 % (0-0.5); Lymphocytes Absolute Auto 2.52 K/mm3 (0.9-3.2); Mean Corpuscular HGB Conc 31.9 g/dl (32-36); Mean Corpuscular Hemoglobin 25.1 pg (26-34); Mean Corpuscular Volume 78.6 fl (80-100); Nucleated Red Blood Cells Absolute Auto 0.000 K/mm3 (0.0-0.012); Nucleated Red Blood Cells Perc 0.0 % (0.0-0.2); Platelet Count Result 242 k/mm3 (150-375); Red Blood Count 4.54 M/mm3 (4.2-5.4); White Blood Count 16.8 K/mm3 (4.5-10.0)
[2025-03-07 01:25] LABS: Syphilis IgG/IgM Antibody Non-Reactive (Nonreactive)
[2025-03-07] MEDS: AMPICILLIN SODIUM 2 GM in SODIUM CHLORIDE 0.9% IV 100 ML 200 ML IVPB (01:50)
[2025-03-07] MEDS: LACTATED RINGERS 1,000 ML 125 ML IV CONT ×2 (01:52→18:35)
--- NOTE | 2025-03-07 02:01 | LDADM ---
This patient, Amisha Dukes, was admitted to Labor/Delivery/Recovery 103 on 03/07/25 at 00:10. Plans for labor, pain management and were discussed with patient. Patient/family oriented to hospital policies and general routines including ID bracelet, bed and alarms, visiting hours, pain management, procedures, bathroom and other care routines, personal items, smoking policy, room service/diet and guest tray routines, security routines, and visiting hours. Patient/Family are encouraged to report perceived risks to care and to ask questions if they do not understand what they are told or what they should do. See OBIX for further documentation.
[2025-03-07] MEDS: ONDANSETRON INJ 4 MG/2 ML VIAL IV PUSH ×2 (05:08→18:35)
[2025-03-07] MEDS: AMPICILLIN SODIUM 1 GM in SODIUM CHLORIDE 0.9% IV 50 ML 100 ML IVPB ×5 (05:43→21:21)
--- NOTE | 2025-03-07 14:51 | PM.OBPNLAB ---
Pain Control Date/time seen: 03/07/25 14:51 Comments: FHR cat 1 contractions occasional SVE / AROM clear odorless fluid dr. calvillo notified
[2025-03-07] MEDS: OXYTOCIN 30 UNITS/NS 500 ML 30 UNITS/500 ML BAG IV CONT (15:57)
--- NOTE | 2025-03-07 17:14 | WPDANESEPPF ---
Anes - Initial Pre Proc Eval Procedure: labor epidural Date/Time: 03/07/25 17:14 Surgeon: Jose Arnold MD Pre Op Diagnosis: labor pain Pre Op Diagnosis: IOL Patient Data Age: 19 Gender: F Height: 1.57 m Weight: 147.7 kg Last Vital Signs Temp 36.6 C 03/07/25 12:41 Pulse 71 03/07/25 17:04 BP 144/84 H 03/07/25 17:04 Pulse Ox 98 03/07/25 13:53 O2 Del Method Room Air 03/07/25 01:00 Allergies Allergy/AdvReac Type Severity Reaction Status Date / Time No Known Allergies Allergy Verified 03/07/25 02:17 Home Medications ?Medication ?Instructions ?Recorded ?Confirmed ?Type ferrous sulfate-folic acid ER 160 1 tablet PO DAILY 02/13/25 03/07/25 History mg-0.4 mg tablet ext.release 24 hr vit no.95-ferrous 1 tablet PO DAILY 02/13/25 03/07/25 History fumarate 28 mg-folic acid 800 mcg tablet () Laboratory Tests 03/07/25 00:33 WBC 16.8 H K/mm3 (4.5-10.0) RBC 4.54 M/mm3 (4.2-5.4) Hgb 11.4 L g/dL (12.0-15.0) Hct 35.7 L % (37.0-47.0) MCV 78.6 L fl (80-100) MCH 25.1 L pg (26-34) MCHC 31.9 L g/dl (32-36) RDW 15.7 H % (11.5-14.5) Plt Count 242 k/mm3 (150-375) MPV 11.1 H fl (7.4-10.4) Immature Gran % (Auto) 3.2 H % (0-0.5) Neut % (Auto) 74.0 H % (45.5-73.1) Lymph % (Auto) 15.0 L % (18.3-44.2) [place] % (Auto) 5.8 % (2.6-8.5) Eos % (Auto) 1.4 % (0-4.4) Baso % (Auto) 0.6 % (0.2-1.2) Lymph # (Auto) 2.52 K/mm3 (0.9-3.2) [place] # (Auto) 1.0 H K/mm3 (0.1-0.6) Eos # (Auto) 0.2 K/mm3 (0-0.3) Baso # (Auto) 0.1 K/mm3 (0.0-0.1) Abs Immat Gran (auto) 0.53 H K/mm3 (0.00-0.031) Absolute Neuts (auto) 12.4 H K/mm3 (1.3-6.7) Absolute Nucleated RBC 0.000 K/mm3 (0.0-0.012) Nucleated RBC % 0.0 % (0.0-0.2) Syphilis IgG/IgM Ab Non-reactive (Nonreactive) Blood Type A Positive Antibody Screen Negative Patient hx anesthesia problems: none Family hx anesthesia problems: none Results Review: All pre-operative results and documents have been reviewed as part of the pre-operative evaluation. [facility] Family History Family History (Updated 02/13/25 @ 12:39 by Indiana Donovan RN) Grandparent Heart attack Cerebrovascular accident Social History Social History (Updated 07/07/24 @ 11:27 by Shayy Shah CMA) Smoking status: Never smoker Alcohol intake: never Substance use: never Substance use type: does not use Lack of Transportation: No Lack of Food: Never True Current Housing: I Have Housing Concerned About Future Housing: No Difficulty Paying Gas/Electric Bills: No Difficulty Paying for Meds: No Currently Unemployed: No Education: Associate Degree Difficulty w/ Childcare or Family Care: No Spiritual care concerns: No Anes - Eval Final PreProcedure Day of Procedure 03/07/25 17:14 Heart: regular rate and rhythm Lungs: clear to auscultation and normal air movement Airway: Mallampati scale class II Neurological: alert and oriented ASA classification: III Anesthetic plan: proceed Anesthesia type and monitoring: regional epidural and standard monitoring Results Review: All pre-operative results and documents have been reviewed as part of the pre-operative evaluation. Informed Consent: The patient's anesthetic plan and its attendant risks and benefits were discussed with the patient/family/POA. Questions were solicited and answers provided to the satisfaction of the patient/family/POA.
--- NOTE | 2025-03-07 22:05 | WPDOBADMIT ---
Obstetrics - Admit Note Admission Note: record reviewed. No pertinent additions to the history and/or any subsequent changes in the physical findings that are not consistent with the expected course of the were found. Patient presents for elective induction of labor. complicated by obesity, reactive testing. Cytotec x2, now on pitocin s/p AROM. FHR category I. Additions to the history and/or subsequent changes in the physical findings follow. None.
[2025-03-08] VITALS (133 sets, daily range): BP systolic 102–159; BP diastolic 50–129; PULSE 75–132; RESP 16–20; TEMP 36.8–37.3; O2SAT 82–100
[2025-03-08] MEDS: AMPICILLIN SODIUM 1 GM in SODIUM CHLORIDE 0.9% IV 50 ML 100 ML IVPB (01:20)
[2025-03-08] MEDS: LACTATED RINGERS 1,000 ML 125 ML IV CONT ×2 (02:20→02:32)
[2025-03-08] MEDS: DEXTROSE 5%/LACTATED RINGERS 1,000 ML 500 ML (03:36)
[2025-03-08] MEDS: OXYTOCIN 30 UNITS/NS 500 ML 30 UNITS/500 ML BAG 125 UNITS IV CONT (08:29)
[2025-03-08] MEDS: IBUPROFEN 600 MG TABLET PO (09:35)
[2025-03-08] MEDS: WITCH HAZEL 40 PADS 1 PAD TOPICAL (10:24)
[2025-03-08] MEDS: BENZOCAINE 20% AER SPR (*SP) 56 GM CAN 1 SPRAY TOPICAL (10:24)
--- NOTE | 2025-03-08 10:48 | P.PCNOB_ITS ---
OB - Vaginal Delivery Note Procedure Delivery date: 03/08/25 Events: Elective Induction of Labor and Other (obesity) Induction method: Per Misoprostol Protocol Delivery augmentation: Rupture of Membranes and Pitocin Delivery monitor: External FHT and External Uterine Route of delivery: Episiotomy description: None Laceration Description: Perineal - 1st Degree Delivery repair: vicryl Specimen: No Quantitative Blood Loss (ml): 150 Anesthesia type: Epidural Disposition: Floor Complications: No immediate complications Narrative: See H&P and notes for details on patient's admission and labor. She progressed to complete cervical dilation and at the appropriate time began pushing. With adequate expulsive efforts by the mother, the baby's head was delivered without difficulty. Nuchal cord was not present. The baby's right shoulder was anterior and delivered under the pubic symphysis without difficulty. The posterior shoulder and the rest of the baby delivered without difficulty. The umbilical cord was doubly clamped and cut after 60 seconds of delayed cord clamping. Care of the infant was then assumed by the nursing staff. [place] Baby Date of : 03/08/25 Gestational Age by Date: 39 gender: Female presentation: vertex position: Left Occiput Posterior Placenta delivery description: Spontaneous Cord Vessel Description: 3 Vessels and Delayed Cord Clamping
--- NOTE | 2025-03-08 11:28 | OBPPTRN ---
Addendum entered by Amparo Hernandez RN 03/08/25 11:29: Pt arrived to unit at 1112 Original Note: Patient transferred to post room # 292 via WC. Support person present. Oriented to unit, room, information board, rooming in, admission packet and security measures. Patient verbalizes understanding.
[2025-03-08] MEDS: ACETAMINOPHEN 325 MG TABLET 650 MG PO (18:58)
[2025-03-09] MEDS: ACETAMINOPHEN 325 MG TABLET 650 MG PO (02:00)
[2025-03-09 04:00] VITALS: BP 129/87; PULSE 79; RESP 18; TEMP 36.7; O2SAT 99
[2025-03-09 04:55] LABS: Hematocrit 28.9 % (37.0-47.0); Hemoglobin 9.0 g/dL (12.0-15.0)
[2025-03-09] MEDS: IBUPROFEN 600 MG TABLET PO ×2 (08:24→20:27)
[2025-03-09] MEDS: DOCUSATE SODIUM 100 MG CAPSULE PO ×2 (08:24→17:42)
[2025-03-09] MEDS: MULTIVIT/MIN/PREN/FOL AC/IRON TABLET 1 TAB PO (08:24)
[2025-03-09 08:40] VITALS: BP 143/91; PULSE 86; RESP 16; TEMP 37.4; O2SAT 99
--- NOTE | 2025-03-09 14:10 | WPDANLDPN2 ---
Anes-Prog Note L&D Date/Time: 03/09/25 14:10 Comfortable throughout: labor and delivery Neuraxial method: epidural Epidural/Spinal procedure site: clean & non-tender Neuro status: Neuro function grossly intact. Vital Signs: Last Vital Signs Temp 37.4 C 03/09/25 08:40 Pulse 86 03/09/25 08:40 Resp 16 03/09/25 08:40 BP 143/91 H 03/09/25 08:40 Pulse Ox 99 03/09/25 08:40 O2 Del Method Room Air 03/07/25 01:00 Pain score (VAS): 0 I/O: Intake & Output 03/08/25 03/09/25 03/09/25 23:59 07:59 15:59 Intake Total 1 Balance 1 Patient feedback: Patient satisfied with anesthetic care.
[2025-03-09 20:10] VITALS: BP 146/83; PULSE 90; RESP 17; TEMP 37.4; O2SAT 100
[2025-03-10] MEDS: ACETAMINOPHEN 325 MG TABLET 650 MG PO ×2 (02:18→08:26)
[2025-03-10 07:25] VITALS: BP 132/77; PULSE 76; RESP 16; TEMP 37.3; O2SAT 99
[2025-03-10] MEDS: DOCUSATE SODIUM 100 MG CAPSULE PO (08:27)
[2025-03-10] MEDS: MULTIVIT/MIN/PREN/FOL AC/IRON TABLET 1 TAB PO (08:27)
--- NOTE | 2025-03-10 08:29 | P.PNOB_ITS ---
OB - PN: Subj Subjective Date/time seen: 03/10/25 08:29 Interval history: pp day 2 doing well OB - PN: Obj Data Labs 03/09/25 03:58 OB - PN A/P Plan day: 2 Plan: routine care and discharge home Time Spent With Patient Time: Total time spent is greater than 50% in coordination of care (as documented) at patient's floor/unit and/or counseling patient: Review of Systems 2 Review of Systems: All systems reviewed & are unremarkable except as noted in HPI and below Exam 2 Const: General: cooperative, healthy appearing and comfortable Chest: Chest palpation & inspection: normal inspection of the chest Resp: Effort & Inspection: normal respiratory effort Cardio: Rate: regular rate GI: Other: soft Back/Spine/Pelvis: Back: no CVA tenderness Skin: General skin exam: normal color Neuro: General: patient oriented x3 Extrem: Right lower extremity: normal to inspection Left lower extremity: n ormal to inspection
--- NOTE | 2025-03-10 08:31 | P.DS_ITS ---
DS: Admitting Diagnosis Discharge Date 03/10/25 Admitting Diagnosis IOL DS: Discharge Diagnosis Discharge Diagnosis (1) Vaginal delivery: Code(s): O80 - Encounter for full-term uncomplicated delivery Status: Acute OB - DS: Summary OB Procedures : None OB Procedures Intrapartum: Spontaneous Vag Delivery OB Procedures: : None Peripartum Data Laceration Description: Perineal - 1st Degree Episiotomy description: None Time Spent with Patient Time attestation: Total time spent providing and/or coordinating discharge services: Discharge Plan Discharge Attending physician on discharge: Orville Williamson Discharging Clinician: Gay Leo Patient Disposition: Home Activity: pelvic rest Diet: regular Patient Instructions: Antibiotic Form Patient Language: Iranian Stand Alone Forms: General Discharge Information Follow-up/Referrals: Jose Arnold MD [Physician, [employer]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
--- NOTE | 2025-03-10 11:09 | PC.NURSE ---
Ambulates off unit with steady gait Accompanied by RN and Father/baby. Belongings gathered and sent with pt
[2025-03-11 10:22] VITALS: BP 137/74; PULSE 78; RESP 18; TEMP 37.1; O2SAT 100
== END 2025-03-10 10:38 | disposition home or self-care (01) | DRG 807 ==
LOC: ANHLDR 00:15 → ANHOB2 03-08 11:13
PROVIDERS: Admitting Provider Obstetrics & Gynecology; PCP Internal Medicine; Visit Provider Obstetrics & Gynecology
DX: O99.824 Streptococcus B carrier state complicating childbirth (principal); Z37.0 Single live birth; O70.0 First degree perineal laceration during delivery; O99.214 Obesity complicating childbirth; O69.81X0 Labor and delivery complicated by cord around neck, without compression, not applicable or unspecified; Z3A.39 39 weeks gestation of pregnancy
CPT/HCPCS: 36415; 85014; 85018; 85025; 86593; 86850; 86900; 86901; A9270; J0290; J2405; J2590; J2795; J7120; J7121